=== PATIENT | female | born 1990 | race Caucasian/White ===

== ENCOUNTER 2016-06-15 12:00 | Emergency (ER) | payer OTHER ==
[~2016-06-15] VITALS: Ht 170.2 cm; Wt 105.0 kg
[2016-06-15 12:02] VITALS: BP 128/64; PULSE 74; RESP 14; TEMP 97.9; O2SAT 98
--- NOTE | 2016-06-15 12:10 | PD ---
HPI Chief Complaint: Injury Time Seen by Provider: 12:09 Travel History International Travel<30 days: No Contact w/Intl Traveler<30days: No Traveled to known affect area: No History of Present Illness HPI 26-year-old female presents to the emergency Department with complaint of right knee pain after a slip and fall at [facility] earlier today. She landed on her right knee. Location of pain is to the patellar aspect. She denies hitting her head or loss of consciousness. Denies neck pain or back pain. Denies paresthesias, loss of sensation, decreased range of motion to the affected extremity. Has been ambulatory on the affected extremity. Pain is aggravated with palpation and inflation. Has not taken any medications or try any chance to alleviate her symptoms. Denies fever, chills, nausea, vomiting. History of asthma. No known allergies. No other modifying factors or associated signs and symptoms. PFSH Past Medical History ?: Not LMP: 04/2016 Social History Tobacco Use: No Allergies-Medications (Allergen,Severity, Reaction): Coded Allergies: No Known Allergies (Unverified , 06/15/16) Reported Meds & Prescriptions Reported Meds & Active Scripts Active Ibuprofen 800 Mg Tab 800 Mg PO Q6HR PRN Review of Systems Except as stated in HPI: all other systems reviewed are Neg Physical Exam Narrative GENERAL: Well-nourished, well-developed female patient, in no acute distress SKIN: Warm and dry. HEAD: Atraumatic. Normocephalic. EYES: Pupils equal and round. No scleral icterus. No injection or drainage. ENT: Mucosa pink and moist. Airway patent. NECK: Trachea midline. CARDIOVASCULAR: Regular rate. RESPIRATORY: No accessory muscle use. MUSCULOSKELETAL: Right knee non-edematous. No erythema. Full range of motion ; flexion to 90. Point tenderness to patellar aspect. 3+ pedal pulse. Right lower extremity supple and non-tender. Sensory intact. Ambulatory with a limp. Knee joints stable. Negative drawer test. NEUROLOGICAL: Awake and alert. Oriented 3. No obvious cranial nerve deficits. Motor grossly within normal limits. Normal speech. PSYCHIATRIC: Appropriate mood and affect; insight and judgment normal. Data Data Last Documented VS Vital Signs Date Time Temp Pulse Resp B/P Pulse Ox O2 Delivery O2 Flow Rate FiO2 06/15/16 12:02 97.9 74 14 128/64 98 Orders Knee, Complete (4vws) (06/15/16 12:06) Ibuprofen (Motrin) (06/15/16 12:15) MDM Medical Decision Making Medical Screen Exam Complete: Yes Emergency Medical Condition: Yes Medical Record Reviewed: Yes Differential Diagnosis Knee contusion, patellar fracture, medical clearance Narrative Course 26-year-old female with right knee injury after [facility] mechanical [facility]. Denies hitting her head or loss of consciousness. Denies neck pain or back pain. Ibuprofen administered in the ER. Right knee x- ray ordered. 1255: Right knee x-ray with no acute findings. Esequiel bandage and crutches provided for support. Ibuprofen prescribed for home. Patient verbalizes understanding and agreement with treatment plan. Patient is medically cleared and stable for discharge. Discussed reasons to return to the emergency department. Instructed patient to follow up with primary care provider. Patient agrees with treatment plan. The patients vital signs are stable and the patient is stable for outpatient follow-up and treatment. Patient discharged home, stable and in no acute distress. Diagnosis Primary Impression: Fall Qualified Code: W19.XXXA - Fall, initial encounter Additional Impression: Contusion of right knee Qualified Code: S80.01XA - Contusion of right knee, initial encounter Referrals: Primary Care Physician Patient Instructions: Contusion in Adults (ED), General Instructions, Knee Pain (ED) Departure Forms: Tests/Procedures, Work Release Enter return to work date: Jun 16, 2016 Additional Instructions: Tylenol or ibuprofen as needed and as directed to reduce pain and inflammation Rest, ice, compress, and elevate extremity to decrease pain and inflammation Knee brace for support Crutches for support Avoid aggravating activity; increase activity as tolerated Follow-up with primary care provider Return to the emergency department immediately with worsening symptoms Med/Other Pt SpecificInfo: Prescription(s) given Scripts Ibuprofen 800 Mg [id number] Mg PO Q6HR PRN (PAIN) #30 TAB Ref 0 Prov:Maryam Peguero 06/15/16 Disposition: 01 DISCHARGE HOME Condition: Stable Maryam Peguero Jun 15, 2016 12:10
[2016-06-15] MEDS ORDERED: IBUPROFEN 800 MG TAB PO ONE (12:15)
[2016-06-15] MEDS ORDERED: IBUP800T23 PO (12:44)
--- NOTE | 2016-06-15 12:49 | RADRPT ---
EXAM DATE/TIME: 06/15/2016 12:40 [facility] COMPARISON: No previous studies available for comparison. INDICATIONS : Right knee pain post fall today. MEDICAL HISTORY : None. SURGICAL HISTORY : None. ENCOUNTER: Initial ACUITY: 1 day PAIN SCORE: 8/10 LOCATION: Right knee. FINDINGS: Four views of the right knee demonstrate no fracture or dislocation. No joint effusion is present. Th ere is no significant arthropathy and mineralization is within normal limits. No soft tissue abnormal ity or radiopaque foreign body is identified. CONCLUSION: No acute right knee abnormality is identified. Naldo Mathew MD on June 15, 2016 at 12:46 Board Certified Radiologist. This report was verified electronically.
== END 2016-06-15 13:15 | disposition home or self-care (01) ==
LOC: NEPB 12:00
DX: S80.01XA Contusion of right knee, initial encounter (principal); W01.0XXA Fall on same level from slipping, tripping and stumbling without subsequent striking against object, initial encounter; Y92.512 Supermarket, store or market as the place of occurrence of the external cause
CPT/HCPCS: 73564; 99284; E0113